=== PATIENT | female | born 1965 | race Caucasian/White ===

== ENCOUNTER 2023-09-17 15:23 | Emergency (ER) | payer OTHER ==
[2023-09-17] MEDS ORDERED: LEVETIRACETAM 500 MG/5 ML VIAL IV ONE (15:44)
[2023-09-17] MEDS ORDERED: NA CHLORIDE 0.9% 100 ML ONE (15:45)
[2023-09-17 15:59] LABS: Absolute Lymphocytes (CBC) 0.8 K/uL (0.7-4.9); Absolute Monocytes 0.2 K/uL (0.1-1.3); Absolute Neutrophil 5.3 K/uL (1.8-8.0); Basophils % 0.4 % (0-1.3); Eosinophils % 0.8 % (0-4.4); Hematocrit 41.1 % (36.0-45.0); Hemoglobin 13.8 g/dL (12.0-15.0); Lymphocytes % 11.9 % (15.3-44.8); MCH 30.7 pg (27.0-35.0); MCHC 33.6 g/dL (32.0-36.0); MCV 91.2 fL (80-100); MPV 8.6 fL (7.6-11.3); Neutrophils % 83.9 % (41.7-73.7); Platelets 248 thou/uL (152-406); RBC Red Blood Cell Count 4.51 M/uL (3.86-4.86); Red Cell Distribution Width 13.4 % (12.1-15.2)
[2023-09-17 16:03] LABS: PT Prothrombin Time 11.1 SECONDS (9.4-12.5); PTT, Activated Partial Thromb 29.2 SECONDS (24.3-36.9); Protime INR 1.01
[2023-09-17 16:14] LABS: ALT/SGPT 20 U/L (13-56); AST/SGOT 13 U/L (15-37); Albumin 3.9 g/dL (3.4-5.0); Albumin/Globulin Ratio 1.1 (1.1-1.8); Alkaline Phosphatase 70 U/L (45-117); Anion Gap 7.6 mEq/L (5.0-15.0); BUN Blood Urea Nitrogen 19 mg/dL (7-18); Bicarbonate 26 mEq/L (21-32); Bilirubin Total 0.4 mg/dL (0.2-1.0); Globulin 3.5 g/dL (2.3-3.5); Glomerular Filtration Rate 71 ml/min (=/>90); Glucose Level 132 mg/dL (74-106); Magnesium 2.1 mg/dL (1.6-2.4); Potassium 3.6 mEq/L (3.5-5.1); Protein, Total 7.4 g/dL (6.4-8.2); Sodium Level 140 mEq/L (136-145); Troponin High Sensitivity 26.5 pg/mL (<58.9)
[2023-09-17 16:18] LABS: Bilirubin Direct < 0.2 mg/dL (0-0.2); Bilirubin Indirect, Calculated 0.2 mg/dL (0.2-0.8)
--- NOTE | 2023-09-17 16:26 | RAD REPORT ---
EXAM DESCRIPTION: CT - Head Brain Wo Cont - 09/17/2023 3:54 pm CLINICAL HISTORY: SEIZURE COMPARISON: No comparisons TECHNIQUE: Noncontrast head CT images were obtained without IV contrast. Multiplanar reformats were generated and reviewed. All CT scans are performed using dose optimization technique as appropriate and may include automated exposure control or mA/KV adjustment according to patient size. FINDINGS: No intracranial hemorrhage, mass, or edema. Midline structures are unremarkable. Normal ventricular caliber for age. Henry-white matter differentiation is preserved, without evidence of acute infarct. No abnormal extra- axial fluid collections. Mastoid air cells and visualized portions of the paranasal sinuses are clear. No acute bony findings. IMPRESSION: No evidence of an acute intracranial process.
--- NOTE | 2023-09-17 16:33 | RAD REPORT ---
EXAM DESCRIPTION: [place] Single View09/17/2023 4:18 pm CLINICAL HISTORY: CHEST PAIN COMPARISON: No comparisons TECHNIQUE: Portable AP view of the chest. FINDINGS: The lungs are clear. Decreased inspiratory effort limits evaluation. No pneumothorax or ef fusion. The cardiomediastinal contours are unremarkable. IMPRESSION: No acute cardiopulmonary process.
[2023-09-17] MEDS ORDERED: NA CHLORIDE 0.9% 1,000 ML ONE (16:39)
--- NOTE | 2023-09-17 17:47 | EDPHYS ---
Physician Documentation [facility] Name: Christine Shaver Age: 57 yrs Sex: Female : 1965 Arrival Date: 09/17/2023 Time: 15:23 Bed 17 Private MD: ED Physician Shai Rasheed HPI: 09/16 15:49 This 57 yrs old Female presents to ER via EMS with complaints of Seizure. sb4 15:49 The patient presents with a history of multiple seizures, a total of 3, the episode(s) sb4 was witnessed, by EMS personnel, by a spouse, the . Seizure Hx: Last seizure: The patient's last seizure was approximately 6 month(s) ago, Usual frequency: irregular frequency, Seizure medications: Keppra. Associated injury: The patient did not suffer any apparent associated injury. EMS care: none. Current symptoms: postictal. 17:31 patient has history of epilepsy, states she is compliant with her medications, cannot sb4 tell me what all she takes. denies any recent changes in medication. neurologist is in od[place]. Historical: - Allergies: 15:41 PENICILLINS; nj1 - PMHx: 15:41 Seizure; Hypertensive disorder; nj1 - Immunization history:: Adult Immunizations unknown. - Infectious Disease History:: Denies. - Social history:: Smoking status: Patient denies any tobacco usage or history of. ROS: 15:59 Constitutional: Negative for fever, chills, and weight loss, sb4 15:59 Neuro: Positive for seizure activity, 15:59 All other systems are negative, Exam: 17:21 Head/Face: Normocephalic, atraumatic. Eyes: Extra-ocular motions intact. Periorbital sb4 areas with no swelling, redness, or edema. ENT: Mucous membranes moist. Cardiovascular: Regular rate and rhythm with a normal S1 and S2. Respiratory: Lungs have equal breath sounds bilaterally, clear to auscultation and percussion. No rales, rhonchi or wheezes noted. No increased work of breathing, no retractions or nasal flaring. Abdomen/GI: Soft, non-tender, no distension. Skin: Warm, dry with normal turgor. Normal color with no rashes, no lesions, and no evidence of cellulitis. 17:21 Constitutional: The patient appears in no acute distress, 17:21 Neuro: seizure activity, is not currently displayed, but the patient is post-ictal, Vital Signs: 15:21 BP 161 / 86; Pulse 72; Resp 18; Temp 97.1(TE); Pulse Ox 92% on R/A; Weight 81.65 kg nj1 (M); Height 5 ft. 5 in. ; 16:43 BP 145 / 77; Pulse 67; Resp 16; Pulse Ox 99% ; nj1 17:24 BP 159 / 76; Pulse 80; Resp 16; Temp 98.4(O); Pulse Ox 97% on R/A; nj1 15:21 Body Mass Index 29.95 (81.65 kg, 165.1 cm) nj1 Danny Coma Score: 15:25 Eye Response: to voice(3). Motor Response: obeys commands(6). Verbal Response: nj1 inappropriate words(3). Total: 12. MDM: 15:33 Patient medically screened. sb4 17:24 Data reviewed: vital signs, nurses notes, EMS record, lab test result(s), EKG, sb4 radiologic studies, and as a result, I will discharge patient. Consideration of Admission/Observation Escalation of care including admission/observation considered. Historians other than the Patient: Spouse/Significant Other: . Care significantly affected by the following chronic conditions: epilepsy. Counseling: I had a detailed discussion with the patient and/or guardian regarding the historical points, exam findings, and any diagnostic results supporting the discharge/admit diagnosis, the presence of at least one elevated blood pressure reading (>120/80) during this emergency department visit, lab results, radiology results, the need for outpatient follow up, a neurologist, to return to the emergency department if symptoms worsen or persist or if there are any questions or concerns that arise at home. ED course: patient remains postictal, will discharge home when she is more awake. 09/16 15:33 Order name: Basic Metabolic Panel; Complete Time: 16:22 sb4 09/16 15:33 Order name: CBC with Diff; Complete Time: 16:11 sb4 09/16 15:33 Order name: Hepatic Function; Complete Time: 16:22 sb4 09/16 15:33 Order name: Magnesium; Complete Time: 16:22 sb4 09/16 15:33 Order name: Protime (+inr); Complete Time: 16:10 sb4 09/16 15:33 Order name: Ptt, Activated; Complete Time: 16:10 sb4 09/16 15:33 Order name: Troponin High Sensitivity; Complete Time: 16:22 sb4 09/16 15:33 Order name: CT Head Brain wo Cont; Complete Time: 16:28 sb4 09/16 15:33 Order name: Chest Single View XRAY; Complete Time: 16:36 sb4 09/16 15:33 Order name: Cardiac monitoring; Complete Time: 15:43 sb4 09/16 15:33 Order name: EKG - Nurse/Tech; Complete Time: 15:41 sb4 09/16 15:33 Order name: IV Saline Lock; Complete Time: 15:43 sb4 09/16 15:33 Order name: Labs collected and sent; Complete Time: 15:42 sb4 09/16 15:33 Order name: NPO; Complete Time: 15:43 sb4 09/16 15:33 Order name: O2 Per Protocol; Complete Time: 15:43 sb4 09/16 15:33 Order name: O2 Sat Monitoring; Complete Time: 15:43 sb4 EC:44 Rate is 64 beats/min. Rhythm is regular, Normal Sinus Rhythm. PA interval is normal at sb4 184 msec. QRS interval is normal at 98 msec. QT interval is normal at 404 msec. No Q waves. T waves are Normal. No ST changes noted. Clinical impression: Normal ECG and No evidence of ischemia. Interpreted by me. Reviewed by me. Administered Medications: 16:01 Drug: Keppra IV 1000 mg IV at calculated rate once Route: IV; Rate: calculated rate; nj1 Site: right antecubital; 16:15 Follow up: Response: No adverse reaction; IV Status: Completed infusion; IV Intake: nj1 110ml 16:45 Drug: NS 0.9% IV 1000 ml IV at 1 bolus Per protocol; 1000 mL bolus Route: IV; Rate: 1 nj1 bolus; Site: right antecubital; Disposition: 18:51 Co-signature as Attending Physician, Shai Rasheed MD I reviewed the patient's care rt provided by the Advanced Practice Provider and agree with the diagnosis and treatment plan. Disposition Summary: 09/17/23 17:46 Discharge Ordered Notes: Location: Home sb4 Problem: new sb4 Symptoms: have improved sb4 Condition: Stable sb4 Diagnosis - Other seizures sb4 Followup: sb4 - With: Emergency Department - When: As needed - Reason: Trouble breathing, Worsening of condition Followup: sb4 - With: Private Physician - When: 2 - 3 days - Reason: Recheck today's complaints, Continuance of care, Re-evaluation by your physician Discharge Instructions: - Discharge Summary Sheet sb4 - Seizure, Adult sb4 Forms: - Patient Portal Instructions sb4 - Leadership Thank You Letter sb4 Signatures: Dispatcher [employer] EDMS Nel Goodman PA-C PA-C sb4 Shai Rasheed MD MD rt Mimi Mcdermott, RN RN nj1 Corrections: (The following items were deleted from the chart) 15:34 15:34 BASIC METABOLIC PANEL+C.LAB.BRZ ordered. EDMS EDMS 15:34 15:34 CBC+H.LAB.BRZ ordered. EDMS EDMS 15:34 15:34 HEPATIC FUNCTION+C.LAB.BRZ ordered. EDMS EDMS 15:34 15:34 MAGNESIUM+C.LAB.BRZ ordered. EDMS EDMS 15:34 15:34 PROTIME (+INR)+COAG.LAB.BRZ ordered. EDMS EDMS 15:34 15:34 PTT, ACTIVATED+COAG.LAB.BRZ ordered. EDMS EDMS 15:34 15:34 Troponin High Sensitivity+C.LAB.BRZ ordered. EDMS EDMS 15:34 15:34 URINE DRUG SCREEN+UC.LAB.BRZ ordered. EDMS EDMS 15:34 15:34 Chest Single View+RAD.RAD.BRZ ordered. EDMS EDMS
--- NOTE | 2023-09-17 17:47 | ER ---
Nurse's Notes [facility] Name: Christine Shaver Age: 57 yrs Sex: Female : 1965 Arrival Date: 09/17/2023 Time: 15:23 Bed 17 Private MD: Diagnosis: Other seizures Presentation: 09/16 15:21 Chief complaint: EMS states: Seizure, hx of them, does take medication for them but nj1 unaware of which one. EMT report 2 seizures lasting 1-1.5 minutes each, mostly shaking right side of body. 15:21 Coronavirus screen: At this time, the client does not indicate any symptoms associated [facility] with coronavirus-19. Ebola Screen: No symptoms or risks identified at this time. Initial Sepsis Screen: Does the patient meet any 2 criteria? No. Patient's initial sepsis screen is negative. Does the patient have a suspected source of infection? No. Patient's initial sepsis screen is negative. Risk Assessment: Do you want to hurt yourself or someone else? Unable to obtain. Onset of symptoms was September 17, 2023. 15:21 Method Of Arrival: EMS: [facility] 15:21 Acuity: JOB 3 nj Historical: - Allergies: 15:41 PENICILLINS; nj1 - PMHx: 15:41 Seizure; Hypertensive disorder; nj1 - Immunization history:: Adult Immunizations unknown. - Infectious Disease History:: Denies. - Social history:: Smoking status: Patient denies any tobacco usage or history of. Screenin:25 [facility] ED Fall Risk Assessment (Adult) History of falling in the last 3 months, [facility] including since admission No falls in past 3 months (0 pts) Confusion or Disorientation Yes (5 pts) Intoxicated or Sedated No (0 pts) Impaired Gait No (0 pts) Mobility Assist Device Used No (0 pt) Altered Elimination No (0 pt) Score/Fall Risk Level 3 or more points = High Risk Maintained a safe environment, Hourly rounding (assess needs \T\ fall precautionary measures) done, Utilized family, sitter, or virtual photo tech as indicated. Abuse screen: Denies threats or abuse. Denies injuries from another. Nutritional screening: No deficits noted. Tuberculosis screening: No symptoms or risk factors identified. Assessment: 15:25 General: Appears in no apparent distress. Behavior is calm, drowsy. nj1 15:25 Pain: Unable to use pain scale. Postictal. Neuro: Level of Consciousness is post ictal. nj1 Cardiovascular: Patient's skin is warm and dry. Respiratory: Airway is patent Respiratory effort is even, unlabored. 16:43 Reassessment: Win, . nj1 16:43 Reassessment: Patient appears in no apparent distress at this time. nj1 16:43 Neuro: Level of Consciousness is Drowsy. verbally responsive. nj1 17:21 Reassessment: patient shivering, complains of being cold, warm blanket given. kj2 Vital Signs: 15:21 BP 161 / 86; Pulse 72; Resp 18; Temp 97.1(TE); Pulse Ox 92% on R/A; Weight 81.65 kg nj1 (M); Height 5 ft. 5 in. ; 16:43 BP 145 / 77; Pulse 67; Resp 16; Pulse Ox 99% ; nj1 17:24 BP 159 / 76; Pulse 80; Resp 16; Temp 98.4(O); Pulse Ox 97% on R/A; nj1 15:21 Body Mass Index 29.95 (81.65 kg, 165.1 cm) nj1 [place] Coma Score: 15:25 Eye Response: to voice(3). Motor Response: obeys commands(6). Verbal Response: nj1 inappropriate words(3). Total: 12. ED Course: 15:25 Oxygen administration via nasal cannula \T\ 2L/min. nj1 15:25 Patient has correct armband on for positive identification. Bed in low position. Call nj light in reach. 15:25 Provided Education on: call light, fall precautions. nj1 15:25 Seizure precautions initiated. nj1 15:26 Patient arrived in ED. nj1 15:27 Nel Goodman PA-C is PHCP. sb4 15:27 Shai Rasheed MD is Attending Physician. sb4 15:41 Triage completed. nj1 15:42 Basic Metabolic Panel Sent. bc6 15:42 CBC with Diff Sent. bc6 15:42 Hepatic Function Sent. bc6 15:42 Magnesium Sent. bc6 15:42 Protime (+inr) Sent. bc6 15:42 Ptt, Activated Sent. bc6 15:42 Troponin High Sensitivity Sent. bc6 15:42 Initial lab(s) drawn, by me, sent to lab. EKG done, by ED staff, reviewed by Nel Goodman PA-C. Inserted saline lock: 20 gauge in right antecubital area, using aseptic technique. Blood collected. 15:43 Arm band placed on. nj1 15:56 CT Head Brain wo Cont In Process Unspecified. EDMS 16:03 Mimi Mcdermott, RN is Primary Nurse. nj1 16:20 Chest Single View XRAY In Process Unspecified. EDMS 18:04 No provider procedures requiring assistance completed. IV discontinued, intact, nj1 bleeding controlled, Pressure dressing applied. Administered Medications: 16:01 Drug: Keppra IV 1000 mg IV at calculated rate once Route: IV; Rate: calculated rate; nj1 Site: right antecubital; 16:15 Follow up: Response: No adverse reaction; IV Status: Completed infusion; IV Intake: nj1 110ml 16:45 Drug: NS 0.9% IV 1000 ml IV at 1 bolus Per protocol; 1000 mL bolus Route: IV; Rate: 1 nj1 bolus; Site: right antecubital; Medication: 18:05 VIS not applicable for this client. nj1 Intake: 16:15 IV: 110ml; Total: 110ml. nj1 Outcome: 17:46 Discharge ordered by MD. sb4 18:05 Discharged to home via wheelchair, with significant other, nj1 18:05 Condition: stable 18:05 Discharge instructions given to patient, significant other, Instructed on discharge instructions, follow up and referral plans. safety practices, Demonstrated understanding of instructions, follow-up care, 18:06 Patient left the ED. nj1 Signatures: Dispatcher [employer] Nel Maxwell, SAJAN MOELLER sb4 Dotty Alcaraz Mimi Emerson, RN RN nj1 Dana Gutierrez, RN RN kj2 Corrections: (The following items were deleted from the chart) 16:48 16:43 Reassessment: Patient appears in no apparent distress at this time. No changes nj1 from previously documented assessment. nj1 16:48 16:43 Pulse 67bpm; Resp 16bpm; Pulse Ox 99%; nj1 nj1
[2023-09-17 18:38] VITALS: BP 145/77; TEMP 98.4; O2SAT 99
--- NOTE | 2023-09-18 13:29 | EKG ---
Test Date: 2023-09-17 Test Time: 15:30:22 Front Office Assistant: ROCIO MEASUREMENT RESULTS: Intervals: Rate: 64 IA: 184 QRSD: 98 QT: 404 QTc: 416 [place]: P: 12 IA: 184 QRS: 17 T: 20 INTERPRETIVE STATEMENTS: Normal sinus rhythm Normal ECG No previous ECG available for comparison Electronically Signed On 09-18-23 13:27:14 CDT by Tanmay Pino
== END 2023-09-17 18:06 | disposition home or self-care (01) ==
LOC: ER 15:23
DX: G40.89 Other seizures (principal); I10 Essential (primary) hypertension; Z88.0 Allergy status to penicillin
CPT/HCPCS: 85025; 80048; 36415; 83735; 85610; 80076; 85730; 84484; 70450; 71045; J1953; J7030; 93005; 96374; 99285